=== PATIENT | female | born 1965 | race Caucasian/White ===

== ENCOUNTER → 2017-07-24 | Outpatient (CLI) | payer BC | LOC: BMCIMAGING 07:27 | PROVIDERS: ATTEND Family Medicine | DX: Z12.31 Encounter for screening mammogram for malignant neoplasm of breast (principal) | CPT/HCPCS: G0202 ==

== ENCOUNTER → 2018-12-20 | Outpatient (CLI) | payer BC | LOC: FIMAGING 15:04 | PROVIDERS: ATTEND Orthopaedic Surgery | DX: M16.11 Unilateral primary osteoarthritis, right hip (principal) ==

== ENCOUNTER 2018-12-30 09:04 | Inpatient (IN) | payer BC ==
[~2018-12-30 09:04] MED LIST: BUPIVACAINE/EPI 0.5% 30 ML SDV ONE
[2018-12-30] MEDS ORDERED: DEXAMETHASONE 4 MG/ML VIAL IVP ONE (09:13)
[2018-12-30] MEDS ORDERED: ceFAZolin 2 GM/DEXTROSE 100 ML IV ONE (09:13)
[2018-12-30] MEDS ORDERED: ACETAMINOPHEN 325 MG TAB PO ONE (09:13)
[2018-12-30] MEDS ORDERED: FAMOTIDINE 20 MG TAB PO ONE (09:13)
[2018-12-30] MEDS ORDERED: LR 1,000 ML IV ONE (09:15)
--- NOTE | 2018-12-30 10:04 | PDHPUP ---
History & Physical Update H&P update statement: This history and physical update is based on an assessment of the patient which was completed after admission or registration (within 24 hours), but prior to the surgery/procedure. H&P update: H&P reviewed & patient examined, no change in patient's condition since H&P completed
--- NOTE | 2018-12-30 10:12 | PDANEPAE ---
ANE History of Present Illness L hip arthroplasty. ANE Past Medical History - Cardiovascular History Hx Hypertension: No Hx Arrhythmias: No Hx Chest Pain: No Hx Coronary Artery / Peripheral Vascular Disease: No Hx CHF / Valvular Disease: No Hx Palpitations: No - Pulmonary History Hx COPD: No Hx Asthma/Reactive Airway Disease: No Hx Recent Upper Respiratory Infection: No Hx Oxygen in Use at Home: No Hx Sleep Apnea: No Sleep Apnea Screening Result - Last Documented: Negative - Neurologic History Hx Cerebrovascular Accident: No Hx Seizures: No Hx Dementia: No - Endocrine History Hx Diabetes: No Hypothyroid: No Hyperthyroid: No Obesity: mild - Renal History Hx Renal Disorders: No - Liver History Hx Hepatic Disorders: No - Neurological & Psychiatric Hx Hx Neurological and Psychiatric Disorders: Yes Neurological / Psychiatric History Comment: depression/anxiety - Cancer History Hx Cancer: No - Congenital Disorder History Hx Congenital Disorders: No - GI History GERD: no Hx Gastrointestinal Disorders: No - Other Health History Other Health History: none - Chronic Pain History Chronic Pain: No - Surgical History Prior Surgeries: none in last 5 yrs. acl replacement right knee 2005 ANE Review of Systems Review of Systems: - Exercise capacity METS (RN): 4 METS ANE Patient History - Allergies Allergies/Adverse Reactions: No Known Allergies Allergy (Verified 12/14/18 10:26) - Home Medications Home Medications: Sertraline HCl [Zoloft 100mg (*)] 100 mg PO DAILY 10/03/15 [Last Taken 12/30/18 07:00] traZODone [traZODONE 50MG (*)] 50 mg PO HS 12/14/18 [Last Taken 12/29/18] - NPO status NPO Since - Liquids (Date): 12/30/18 NPO Since - Liquids (Time): 07:30 NPO Since - Solids (Date): 12/29/18 NPO Since - Solids (Time): 22:00 - Anes Hx Anes Hx: no prior problems - Smoking Hx Smoking Status: Never smoked - Alcohol Use Alcohol Use: Other (3 drinks/week.) - Family Anes Hx Family Anes Hx: none Family Hx Anesthesia Complications: none ANE Labs/Vital Signs - Vital Signs Blood Pressure: 118/77 Heart Rate: 67 Respiratory Rate: 18 O2 Sat (%): 95 Height: 170.18 cm Weight: 81.647 kg ANE Physical Exam - Airway Neck exam: FROM Mallampati Score: Class 1 Mouth exam: normal dental/mouth exam - Pulmonary Pulmonary: clear to auscultation - Cardiovascular Cardiovascular: regular rate and rhythym - ASA Status ASA Status: II ANE Anesthesia Plan Anesthesia Plan: spinal
[2018-12-30] MEDS ORDERED: MIDAZOLAM 2 MG/2 ML VIAL IVP ONE (10:13)
[2018-12-30] MEDS ORDERED: MIDAZOLAM 2 MG/2 ML VIAL ONE (10:20)
[2018-12-30] MEDS ORDERED: fentaNYL 100 MCG/2 ML INJ ONE ×2 (10:23→12:23)
[2018-12-30] MEDS ORDERED: PROPOFOL 200 MG/20 ML VIAL ONE ×5 (10:23→12:35)
[2018-12-30] MEDS ORDERED: TRANEXAMIC ACID 1,000 MG in NS 100 ML IV ONE (10:30)
[2018-12-30] MEDS ORDERED: POVIDONE-IODINE 20 ML in SODIUM CL IRRIG SOLUTION 500 ML IRR ONE (10:30)
[2018-12-30] MEDS ORDERED: ROPIVACAINE 0.2% 80 MG, EPINEPHrine 0.2 MG, KETOROLAC TROMETHAMINE 30 MG in SYRINGE 0 ML IU ONE (10:30)
[2018-12-30] MEDS ORDERED: ONDANSETRON 4 MG/2 ML VIAL ONE (12:28)
[2018-12-30] MEDS ORDERED: fentaNYL 100 MCG/2 ML INJ IVP PRN (12:57)
[2018-12-30] MEDS ORDERED: NALOXONE HCL 0.4 MG/ML INJ IVP PRN (12:57)
[2018-12-30] MEDS ORDERED: MAGNESIUM HYDROXIDE 30 ML UDCUP PO PRN (13:05)
[2018-12-30] MEDS ORDERED: PROMETHAZINE HCL 25 MG/ML INJ IVP PRN (13:05)
[2018-12-30] MEDS ORDERED: BISACODYL 10 MG SUPP PR PRN (13:05)
[2018-12-30] MEDS ORDERED: PROMETHAZINE HCL 25 MG SUPPR PR PRN (13:05)
[2018-12-30] MEDS ORDERED: diphenhydrAMINE 25 MG CAP PO PRN (13:05)
[2018-12-30] MEDS ORDERED: ONDANSETRON 4 MG/2 ML VIAL IVP PRN (13:05)
[2018-12-30] MEDS ORDERED: POLYETHYLENE GLYCOL 3350 17 GM PKT PO PRN (13:05)
[2018-12-30] MEDS ORDERED: LACTULOSE 20 GM/30 ML UDCUP PO PRN (13:05)
[2018-12-30] MEDS ORDERED: ONDANSETRON DISINTEGRATING 4 MG TAB PO PRN (13:05)
[2018-12-30] MEDS ORDERED: CYCLOBENZAPRINE 10 MG TAB PO PRN (13:05)
[2018-12-30] MEDS ORDERED: DIPHENOXYLATE/ATROPINE LOMOTIL 1 TAB PO PRN (13:05)
--- NOTE | 2018-12-30 13:15 | POSTOPPROG ---
Post Op Note Date of Operation: 12/30/18 Surgeon: Anoop Sevilla Lavatory Attendant: AB Gonzalez Anesthesiologist: MD Bakari Anesthesia: IV Sedation, Spinal Pre-op Diagnosis: Right hip OA Post-op Diagnosis: same Procedure: R ant LUI with JUAN Inf/Abcess present in the surg proc area at time of surgery?: No EBL: 100-500 (200) Drains: Hemovac
[2018-12-30] MEDS ORDERED: LR 1,000 ML IV SCH (13:30)
--- NOTE | 2018-12-30 14:42 | PDMN ---
Medical Necessity Medical necessity: [facility] S560 hip arthroplasty- A-2 days; [facility] INPT only OP- R ant. LUI with JUAN -- AUTH# [id number] APPROVED FOR CPT 49854 DONE INT LOS 5 DAYS
--- NOTE | 2018-12-30 15:18 | POSTANESTH ---
Post Anesthetic Evaluation Cardiovascular Status: Normal, Stable Respiratory Status: Normal, Stable Level of Consciousness/Mental Status: Can Participate in Eval Pain Control: Adequate, Prn Tx Ordered Nausea/Vomiting Control: Adequate, Prn Tx Ordered Complications Possibly Related to Anesthesia: None Noted
[2018-12-30] MEDS: ceFAZolin 2 GM/DEXTROSE 100 ML IV SCH (17:42)
[2018-12-30] MEDS: ACETAMINOPHEN 325 MG TAB PO SCH (19:39)
[2018-12-30] MEDS: FAMOTIDINE 20 MG TAB PO SCH (20:29)
[2018-12-30] MEDS: ASPIRIN 81 MG CHEWABLE TAB PO SCH (20:30)
[2018-12-30] MEDS: oxyCODONE IR 5 MG TAB PO PRN ×2 (20:31→21:20)
[2018-12-30] MEDS: SENNOSIDES/DOCUSATE SODIUM TAB PO SCH (20:31)
[2018-12-30] MEDS ORDERED: traZODone 50 MG TAB PO SCH (21:00)
[2018-12-31] MEDS: ACETAMINOPHEN 325 MG TAB PO SCH ×3 (01:59→12:30)
[2018-12-31] MEDS: ceFAZolin 2 GM/DEXTROSE 100 ML IV SCH (01:59)
[2018-12-31 04:43] VITALS: BP 95/61
--- NOTE | 2018-12-31 07:40 | SOAPPROG ---
GLORY Progress Note Assessment/Plan: Assessment: 53 y/o female POD#1 from a Right Direct Anterior Total Hip Replacement. Currently stable. Plan: -DVT PPX -WBAT with Anterior Hip Precautions -D/C Planning today -Pain control with PO pain meds 12/31/18 07:35 Subjective: 53 y/o female POD#1 from a Right THR. Overall feels still a little numbness along her right thigh. Has no complaints of pain at this time, she did have to take an oxycodone last night for pain control but has since just been taking tylenol. Denies any fever, chills, lightheadedness, dizziniess, CP, SOB, ABD pain, nausea, vomiting. Objective: Vital Signs Temp Pulse Resp BP Pulse Ox 36.7 C 67 16 95/61 L 96 12/31/18 04:43 12/31/18 04:43 12/31/18 04:43 12/31/18 04:43 12/31/18 04:43 Laboratory Results 12/31/18 05:23 12/30/18 12/31/18 01/01/19 05:59 05:59 05:59 Intake Total 1900 500 Output Total 3210 450 Balance -1310 50 ICD10 Worksheet Patient Problems: Problems Problem Status Onset Osteoarthritis of right hip Acute
--- NOTE | 2018-12-31 07:48 | PDIAF ---
- Diagnosis Diagnosis: Right Hip Osteoarthritis Code Status: Full Code - Medication Management Discharge Medications: electronically signed and located in the Home Medication List. - Orders Services needed: Physical Therapy Diet Recommendation: no restrictions on diet Diet Texture: Regular Texture Diet Additional Instructions: WBAT with assist see postop instruction handout - Follow Up Care Current Providers and Referrals: Anoop Sevilla MD [Medical Doctor] - follow up in 2 weeks Kisha Méndez MD [Primary Care Provider] -
--- NOTE | 2018-12-31 07:51 | PDDCSUM ---
<Jeremi Kirkland - Last Filed: 12/31/18 07:48> Discharge Summary Discharge Summary: 53 y/o female who failed conservative management for right hip Osteoarthritis. Patient underwent a risk and Benefit analysis and signed consent to undergo a right total hip replacement by Dr Anoop Sevilla on 12/30/2018. Patient tolerated the procedure and was transferred to the PACU and then once stabilized she was transferred to the orthopedic floor. On the floor she was seen by the hospitalist, had consults for PT and OT, had IV and PO pain medication as well as IV antibiotics for 24 hours. On post-op day number one she was d/c to home. She will follow-up in two week time frame. <Anoop Sevilla - Last Filed: 01/03/19 09:45> Discharge Summary Discharge Summary: Pt was not evaluated by a hospitalist
[2018-12-31] MEDS: SENNOSIDES/DOCUSATE SODIUM TAB PO SCH (08:36)
[2018-12-31] MEDS: ASPIRIN 81 MG CHEWABLE TAB PO SCH (08:36)
[2018-12-31] MEDS: FAMOTIDINE 20 MG TAB PO SCH (08:36)
[2018-12-31] MEDS ORDERED: SERTRALINE HCL 100 MG TAB PO SCH (09:00)
[2018-12-31] MEDS: oxyCODONE IR 5 MG TAB PO PRN (12:31)
--- NOTE | 2018-12-31 14:53 | ASMTLACE ---
ERICKE Length of stay for Answers: 2 days current admission Acuity / Level of Answers: Yes Care: Did the patient have an inpatient admission? # of Emergency department Answers: 0 visits in the last 6 months Social determinants Answers: Mental health diagnosis (anxiety, depression, pers onality disorders, etc.) Score: 8 Date Signed: 12/31/2018 02:53 PM Electronically Signed By:RITA Bell
--- NOTE | 2018-12-31 14:56 | ASDISCHSUM ---
Discharge Information Plan Status: Medically Cleared to Leave: Discharge Date:12/31/2018 01:35 PM CM D/C Disposition: ADT D/C Disposition:Home, Routine, Self-Care Projected Discharge Date:12/31/2018 11:00 AM Transportation at D/C: Discharge Delay Reason: Follow-Up Date:12/31/2018 11:00 AM Discharge Slot: Final Diagnosis: Placement Information Referral Type:*Home Health Care Services Referral ID:[id number] Provider Name:[facility] Address 1:[address] [place] [address] Address 2: City:[place] Selection Factors: State:[place] Patient Contact Information Contact Name:LATRICIA Relationship:Mother Address: Work Phone: City: [facility] Phone: [facility] Code: Email: Financial Information Financial Class:BCOP Primary Plan Desc:BC OUT OF STATE [facility] Primary Plan Number:[id number] Secondary Plan Desc: Secondary Plan Number: Assessment Information LACE LACE Length of stay for Answers: 2 days current admission Acuity / Level of Answers: Yes Care: Did the patient have an inpatient admission? # of Emergency department Answers: 0 visits in the last 6 months Social determinants Answers: Mental health diagnosis (anxiety, depression, pers onality disorders, etc.) Score: 8 Date Signed: 12/31/2018 02:53 PM Electronically Signed By:RITA Bell [facility] CM Progress Note CM Note CM Note Notes: Pt had planned hip surgery. PT rec [facility] vs home, pt wants [facility] and chooses [facility]. Referral sent in [facility] and Aleksandra notified. Orders to be obtained via [employer]. Pt address/phone verified. Date Signed: 12/31/2018 02:55 PM Electronically Signed By:RITA Bell Intervention Information
--- NOTE | 2019-01-03 11:34 | GOP ---
[f rep st] OPERATIVE REPORT DATE OF OPERATION: 12/30/2018 SURGEON: Anoop Sevilla MD ENVIRONMENTAL COMPLIANCE ENGINEER: Omar Gonzalez, CSFA, LSA. Doll Wig Maker Rooted Hair was required for the procedure due to complexity of the case and patient's condition for positioning, prepping, draping, retraction, and closure. ANESTHESIA: Spinal, IV sedation. PREOPERATIVE DIAGNOSIS: Right hip osteoarthritis. POSTOPERATIVE DIAGNOSIS: Right hip osteoarthritis. PROCEDURE PERFORMED: Right hip anterior approach hip replacement with MAKOplasty robotic guidance, f luoroscopic supervision greater than 1 hour. FINDINGS: SPECIMENS: Femoral head. ESTIMATED BLOOD LOSS: 200 cc. INDICATIONS: The patient has severe hip osteoarthritis that failed to improve with conservative cristal ures significantly affecting activities of daily living, including walking. The patient elected to p roceed with anterior approach hip replacement using MAKOplasty robotic guidance. After extensive dis cussion of all possible approaches, as well as the risks, benefits, pros, cons, expected recovery, an d prognosis, the patient verbalized understanding of the risks and benefits of the procedure and sign ed informed consent prior to the procedure. DESCRIPTION OF PROCEDURE: The patient was seen in the holding area. Operative consent and extremity were signed. Patient was taken to the operating room where after smooth induction of spinal anesthe yvonne and sedation, the patient was placed in supine position on the operating table with the arch tabl e extension. The hip and contralateral iliac crest were prepped and draped in usual sterile fashion. Operative site was confirmed by signature. Time-out performed. Allergies reviewed. Antibiotics a nd TXA administered. Three pins were placed in the contralateral iliac crest. Pelvic array was fixed. It was then well v isualized by the robot. The desired incision for the anterior approach to the hip was infiltrated wi th 0.25% Marcaine with epinephrine. The incision was made with a 10 blade, carried through subcutane ous tissue to identify the TFL fascia. This was incised in line with the incision and the TFL was re tracted laterally. The lateral femoral circumflex vessels were coagulated with Aquamantys. The deep TFL fascia was incised and the vastus lateralis was clearly exposed. Pre-capsular fat was excised. A T-shaped capsulotomy was performed and the capsule was preserved for later closure. The femoral n sylvia osteotomy was then performed based on pre-templated calculations and imaging. The femoral head w as excised with a corkscrew. The acetabulum was exposed in standard fashion. The labrum, pulvinar, and soft tissue were excised s harnehemias. The pelvic checkpoint was placed in the AIIS. Acetabular registration was performed using t Tresata robot. Reaming was then performed using the robot to the desired size. The cup was impacted into place again with robotic guidance. Good fixation was achieved. The cup was irrigated and dried, an d the liner was impacted into place achieving good locking within the cup. The femur was then exposed in standard fashion. The femur was broached to the desired size. The tri al neck and head were attached, and the hip was relocated. The position of all components was confir med fluoroscopically. The foot was externally rotated to 90 degrees, extended to the floor, and stab ility was again confirmed. The hip was then dislocated, and the femoral trial components were remove d. The stem was impacted into place. The trunnion was cleaned and dried, and the head was impacted down into the trunnion. The wound was copiously irrigated, including the cup with pulse lavage, and the hip was once again relocated. Component placement was confirmed with fluoroscopy. All checkpoints were removed. The pelvic array was also removed. The wound was copiously irrigated with sterile solution. Dilute Betadine was also irrigated into the wound and allowed to soak for 3 m inutes before being irrigated out. Joint cocktail was injected in the soft-tissue. Capsule and [place] rect head of the rectus femoris were repaired with #1 Vicryl sutures. The drain was placed exiting d istal and laterally from deep to TFL. The wound was closed in layers with 0 Quill in the TFL fascia, deep subcutaneous fat, and 3-0 Versalok in the dermis. The wound was dressed with sterile dressings . Patient was safely awakened, taken to recovery room in stable condition. All critical portions of procedure were performed by myself, Dr. Sevilla. This operative note was creat ed myself, and I was immediately available for emergency cross-coverage at all times. DRAINS: Hemovac x1. COMPLICATIONS: None. IMPLANTS: Include a Trident II Tritanium cluster hole acetabular shell size 52 mm with a 0-degree, 3 6 mm polyethylene insert, Chalino Accolade II size 4 stem, 127 degree offset with a 36 mm +0 head. /[id number]/MODL
== END 2018-12-31 13:35 | disposition home or self-care (01) | DRG 470 ==
LOC: F3N 09:04
PROVIDERS: ADMIT Orthopaedic Surgery; ATTEND Orthopaedic Surgery
DX: M16.11 Unilateral primary osteoarthritis, right hip (principal)
CPT/HCPCS: 97110-GP; 97116-GP; 97161-GP; 97165-GO; J0171; J0690; J1100; J1885; J2250; J2405; J2704; J2795; J3010